=== PATIENT | female | born 1960 | race Caucasian/White ===

== ENCOUNTER 2020-02-15 11:37 | Day surgery (SDC) | payer MEDICARE ==
[2020-02-13 11:35] LABS: BASOPHILS % (AUTO) 0.4 % (0.0-5.0); EOSINOPHILS % (AUTO) 2.9 % (0.0-8.0); HEMATOCRIT 34.7 % (36-48); LYMPHOCYTES % (AUTO) 29.9 % (21.0-51.0); MEAN CORPUSCULAR HEMOGLOBIN 32.6 pg (27.0-33.0); MEAN CORPUSCULAR VOLUME 101.8 fL (79-99); MONOCYTES % (AUTO) 8.4 % (3.0-13.0); NEUTROPHILS % (AUTO) 58.1 % (40.0-77.0); PLATELET COUNT (AUTO) 282 K/uL (130-400); RED BLOOD CELL COUNT(AUTO) 3.41 MIL/uL (4.00-5.50); RED CELL DISTRIBUTION WIDTH 15.9 % (11.0-15.5); WHITE BLOOD COUNT (AUTO) 7.2 K/uL (4.8-10.8)
[2020-02-13 11:54] LABS: CREATININE 4.8 mg/dL (0.5-1.5); POTASSIUM 5.7 mmol/L (3.5-5.1)
[2020-02-13 12:05] LABS: INR 0.89 (0.85-1.15); PARTIAL THROMBOPLASTIN TIME 25.2 SEC (26.3-35.5); PROTHROMBIN TIME 9.7 SEC (9.6-11.6)
[2020-02-14 09:33] VITALS: BP 115/62
[~2020-02-15] VITALS: Ht 160 cm; Wt 73.7 kg
[~2020-02-15 11:37] MED LIST: ACYC200C PO; AEC81 PO; AMLO-258 PO; ATOR40TA69 PO; CARV6.25 PO; DOCU100C33 PO; DULO30CA52 PO; FERS325 PO; FOLI1TAB85 PO; FURO20TA4 PO; HYDR-3420 PO; INSU100I15 SQ; INSU100I21 SQ; PANT40TA54 PO; SODIUM CHLORIDE 0.9% 1000ML 1,000 ML IV SCH; TOPI50TA24 PO; VITAMIN D PO
[2020-02-15 12:05] VITALS: BP 106/46
--- NOTE | 2020-02-15 12:31 | NUR ---
skin dry with scabs skin tears to ble , pt states "had a fall 3 weeks ago. redness and swelling to ble. Addendum: 02/15/20 at 1233 by TRAVIS VELA RN Amended: Links added.
[2020-02-15] MEDS ORDERED: DiphenhydrAMINE HCL 50 MG/ML VIAL IV SCH (12:45)
--- NOTE | 2020-02-15 16:20 | NUR ---
procedure pt taken to cardiac catheterization technician for scheduled procedure.
[2020-02-15] MEDS ORDERED: LIDOCAINE HCL 2% 20ML ONE (16:47)
[2020-02-15] MEDS ORDERED: IODIXANOL 320 MG/ML 100 ML VIAL ONE (16:47)
[2020-02-15] MEDS ORDERED: MIDAZOLAM HCL 1 MG/ML 2ML VIAL ONE (16:47)
[2020-02-15] MEDS ORDERED: FENTANYL CITRATE PF 50 MCG/1 ML 2ML VIAL ONE (16:47)
[2020-02-15] MEDS ORDERED: HEPARIN SODIUM 1000UNIT/ML 10ML VIAL ONE (16:54)
[2020-02-15] MEDS ORDERED: DiphenhydrAMINE HCL 50 MG/ML VIAL ONE (16:58)
[2020-02-15] MEDS ORDERED: METHYLPREDNISOLONE SOD SUCC 125MG/2ML VIAL ONE (16:58)
[2020-02-15 18:05] VITALS: BP 135/44
--- NOTE | 2020-02-15 18:05 | NUR ---
post received patient back from director labor standards. s/p fistulogram with angioplasty right upper arm fistula. dressing dry and intact palpable bruit and thrill. vs stable. no bleeding or hematoma to site. pt awake and alert in bed. no distress noted. pt denied any pain or discomforts
[2020-02-15 18:20] VITALS: BP 136/44
[2020-02-15 18:35] VITALS: BP 140/52
[2020-02-15 18:50] VITALS: BP 136/51
[2020-02-15 19:00] VITALS: BP 138/56
--- NOTE | 2020-02-15 19:05 | NUR ---
dc pt dc home via w[facility] no distress noted. pt denied any pain or discomforts. right upper arm dressing dry and intact, no bleeding or hematoma to site. pt accompanied by family.
== END 2020-02-15 19:05 | disposition home or self-care (01) ==
LOC: DAH 11:37
PROVIDERS: ATTEND Surgery Vascular Surgery
DX: I77.89 Other specified disorders of arteries and arterioles (principal); I44.7 Left bundle-branch block, unspecified; I12.0 Hypertensive chronic kidney disease with stage 5 chronic kidney disease or end stage renal disease; E11.22 Type 2 diabetes mellitus with diabetic chronic kidney disease; N18.6 End stage renal disease; Z88.8 Allergy status to other drugs, medicaments and biological substances
CPT/HCPCS: 36415; 36902; 80048; 82948 ×2; 85025; 85610; 85730; 86850; 86900; 86901; 93005; A4215; A4216; A4221; A4222; A4223 ×3; A4606; A4663; C1725; C1769 ×4; C1894 ×2; J1200; J1644 ×2; J2250; J3010; J3490; J7030; Q9967; 99156; 99157; J2930

== ENCOUNTER → 2020-02-27 | Outpatient (CLI) | payer MEDICARE ==
[~2020-02-27] MED LIST changes: -SODIUM CHLORIDE 0.9% 1000ML 1,000 ML IV SCH
== END | disposition home or self-care (01) ==
LOC: RAH 08:54
PROVIDERS: ATTEND Surgery Vascular Surgery
DX: I77.89 Other specified disorders of arteries and arterioles (principal); N18.6 End stage renal disease; Z01.818 Encounter for other preprocedural examination
CPT/HCPCS: 93970

== ENCOUNTER → 2020-04-11 | Outpatient (CLI) | payer MEDICARE ==
[2020-03-28 11:52] LABS: BASOPHILS % (AUTO) 0.4 % (0.0-5.0); HEMATOCRIT 34.5 % (36-48); LYMPHOCYTES % (AUTO) 33.2 % (21.0-51.0); MEAN CORPUSCULAR HEMOGLOBIN 32.6 pg (27.0-33.0); MEAN CORPUSCULAR HGB CONC 31.9 g/dL (32.0-36.0); MEAN CORPUSCULAR VOLUME 102.4 fL (79-99); MONOCYTES % (AUTO) 10.4 % (3.0-13.0); NEUTROPHILS % (AUTO) 51.8 % (40.0-77.0); PLATELET COUNT (AUTO) 275 K/uL (130-400); RED BLOOD CELL COUNT(AUTO) 3.37 MIL/uL (4.00-5.50); WHITE BLOOD COUNT (AUTO) 5.7 K/uL (4.8-10.8)
[2020-03-28 12:02] LABS: CREATININE 4.7 mg/dL (0.5-1.5); POTASSIUM 4.7 mmol/L (3.5-5.1)
[2020-03-28 12:04] LABS: INR 1.01 (0.85-1.15); PROTHROMBIN TIME 10.8 SEC (9.6-11.6)
[2020-03-28 12:06] LABS: PARTIAL THROMBOPLASTIN TIME 25.7 SEC (26.3-35.5)
[2020-04-03 10:24] VITALS: BP 153/50
[~2020-04-11] VITALS: Ht 157.5 cm; Wt 76.2 kg
[~2020-04-11] MED LIST changes: +ACET-2247 PO; +BACL10TA PO; +DULO60CA64 PO; +INSU100I3 SQ; +INSU100V12 SQ; +MELA10TA2 PO; +NITR0.4T50 SL; +SUCR500T PO; +ZOFRAN PO
[2020-04-11 11:06] LABS: BASOPHILS % (AUTO) 0.5 % (0.0-5.0); EOSINOPHILS % (AUTO) 3.4 % (0.0-8.0); HEMATOCRIT 40.2 % (36-48); LYMPHOCYTES % (AUTO) 28.3 % (21.0-51.0); MEAN CORPUSCULAR HEMOGLOBIN 32.1 pg (27.0-33.0); MEAN CORPUSCULAR HGB CONC 31.8 g/dL (32.0-36.0); MEAN CORPUSCULAR VOLUME 100.8 fL (79-99); MONOCYTES % (AUTO) 8.4 % (3.0-13.0); NEUTROPHILS % (AUTO) 59.1 % (40.0-77.0); PLATELET COUNT (AUTO) 285 K/uL (130-400); RED BLOOD CELL COUNT(AUTO) 3.99 MIL/uL (4.00-5.50); RED CELL DISTRIBUTION WIDTH 14.4 % (11.0-15.5); WHITE BLOOD COUNT (AUTO) 7.4 K/uL (4.8-10.8)
[2020-04-11 11:07] LABS: CREATININE 5.1 mg/dL (0.5-1.5); POTASSIUM 4.5 mmol/L (3.5-5.1)
[2020-04-11 11:48] LABS: INR 0.95 (0.85-1.15); PROTHROMBIN TIME 10.4 SEC (9.6-11.6)
[2020-04-11 11:50] LABS: PARTIAL THROMBOPLASTIN TIME 25.1 SEC (26.3-35.5)
== END ==
LOC: EDSTATUS 10:00 → DAH 10:00
PROVIDERS: ATTEND Surgery Vascular Surgery
DX: Z01.818 Encounter for other preprocedural examination (principal); N18.6 End stage renal disease; Z20.828 Contact with and (suspected) exposure to other viral communicable diseases
CPT/HCPCS: 36415; 80048; 85025; 85610; 85730; 86850; 86900; 86901; C9803; U0003

== ENCOUNTER 2020-04-25 11:12 | Day surgery (SDC) | payer MEDICARE ==
[2020-04-23 09:25] LABS: CREATININE 5.9 mg/dL (0.5-1.5); POTASSIUM 4.4 mmol/L (3.5-5.1)
[2020-04-24 13:35] VITALS: BP 146/65
[~2020-04-25] VITALS: Ht 157.5 cm; Wt 74.0 kg
[~2020-04-25 11:12] MED LIST changes: -ACYC200C PO; -DOCU100C33 PO; -DULO30CA52 PO; -INSU100I15 SQ; -INSU100I21 SQ; -VITAMIN D PO
[2020-04-25 11:37] VITALS: BP 154/63
[2020-04-25] MEDS: SODIUM CHLORIDE 0.9% 1000ML 1,000 ML IV ONE (12:33)
[2020-04-25] MEDS ORDERED: HYDROCORTISONE SOD SUCCINATE 100 MG/2 ML VIAL ONE (13:39)
[2020-04-25] MEDS ORDERED: LIDOCAINE HCL 1% MDV 50ML VIAL ONE (14:06)
[2020-04-25] MEDS ORDERED: HEPARIN SODIUM 1000UNIT/ML 10ML VIAL ONE (14:06)
[2020-04-25] MEDS ORDERED: IODIXANOL 320 MG/ML 100 ML VIAL ONE (14:06)
[2020-04-25] MEDS: DiphenhydrAMINE HCL 50 MG/ML VIAL ONE (14:18)
[2020-04-25] MEDS: HYDROCORTISONE SOD SUCCINATE 100 MG/2 ML VIAL ONE (14:19)
[2020-04-25] MEDS ORDERED: MIDAZOLAM HCL 1 MG/ML 2ML VIAL ONE (14:40)
[2020-04-25] MEDS ORDERED: FENTANYL CITRATE PF 50 MCG/1 ML 2ML VIAL ONE (14:40)
[2020-04-25] MEDS ORDERED: OCTYL 2-CYANOACRYLATE 1 EACH TP ONE (15:51)
[2020-04-25 16:25] VITALS: BP 178/68
[2020-04-25 16:40] VITALS: BP 169/72
[2020-04-25 16:55] VITALS: BP 172/67
[2020-04-25 17:20] VITALS: BP 170/68
== END 2020-04-25 17:20 | disposition home or self-care (01) ==
LOC: DAH 11:12
PROVIDERS: ATTEND Surgery Vascular Surgery
DX: I12.0 Hypertensive chronic kidney disease with stage 5 chronic kidney disease or end stage renal disease (principal); E11.22 Type 2 diabetes mellitus with diabetic chronic kidney disease; N18.6 End stage renal disease; I77.89 Other specified disorders of arteries and arterioles; Z88.6 Allergy status to analgesic agent; Z88.8 Allergy status to other drugs, medicaments and biological substances; Z96.643 Presence of artificial hip joint, bilateral; Z90.49 Acquired absence of other specified parts of digestive tract; Z90.89 Acquired absence of other organs; Z98.890 Other specified postprocedural states; Z20.828 Contact with and (suspected) exposure to other viral communicable diseases; Z79.899 Other long term (current) drug therapy
CPT/HCPCS: 36415; 36581; 36902; 80048; 82948; 86850; 86900; 86901; 96374; 96375; A4215; A4221; A4222; A4223; A4649 ×2; A4663; C1725 ×3; C1750; C1769 ×5; C1894 ×2; C9803; J1200; J1644 ×4; J1720 ×2; J2250; J3010; J3490; J7030; Q9967; U0003; 99156; 99157

== ENCOUNTER 2020-09-24 06:52 | Day surgery (SDC) | payer MEDICARE ==
[2020-09-24] VITALS (7 sets, daily range): BP systolic 114–154; BP diastolic 47–68
[~2020-09-24] VITALS: Ht 157.5 cm; Wt 73.9 kg
[2020-09-24] MEDS: DEXTROSE 50%-WATER 50 ML DISP.SYRIN IV SCH ×2 (07:45→11:11)
[2020-09-24] MEDS ORDERED: FURO40TA5 PO (08:21)
[2020-09-24] MEDS ORDERED: INSU100I3 SQ (08:21)
[2020-09-24] MEDS ORDERED: PROPOFOL 10 MG/ML 20ML VIAL IV ONE ×2 (09:00)
[2020-09-24] MEDS ORDERED: ONDANSETRON 4MG INJ ONE (09:00)
[2020-09-24] MEDS ORDERED: METOCLOPRAMIDE 10 MG/2 ML VIAL ONE (10:51)
[2020-10-04] MEDS ORDERED: 0.9%NACL 1000ML 1,000 ML IV SCH (08:16)
== END 2020-09-24 11:20 | disposition home or self-care (01) ==
LOC: DAH 06:52 → ENDO 06:52
PROVIDERS: ATTEND Internal Medicine Gastroenterology
DX: K22.2 Esophageal obstruction (principal); Z20.822 Contact with and (suspected) exposure to COVID-19; K29.70 Gastritis, unspecified, without bleeding; E11.22 Type 2 diabetes mellitus with diabetic chronic kidney disease; I12.0 Hypertensive chronic kidney disease with stage 5 chronic kidney disease or end stage renal disease; N18.6 End stage renal disease; I25.10 Atherosclerotic heart disease of native coronary artery without angina pectoris; Z99.2 Dependence on renal dialysis; Z86.73 Personal history of transient ischemic attack (TIA), and cerebral infarction without residual deficits; Z95.5 Presence of coronary angioplasty implant and graft; Z90.89 Acquired absence of other organs; Z90.49 Acquired absence of other specified parts of digestive tract; Z80.0 Family history of malignant neoplasm of digestive organs; Z79.01 Long term (current) use of anticoagulants
CPT/HCPCS: 36415; 43239; 43249; 82948 ×4; 84132; 87635; A4215; A4221; A4222; A4223; A4606; A4620; A4663; C9803; J2405; J2704 ×2; J2765; J7070

== ENCOUNTER 2021-11-22 19:21 | Inpatient (IN) | payer MEDICARE ==
[~2021-11-22] VITALS: Ht 162.6 cm; Wt 66.1 kg
[~2021-11-22 19:21] MED LIST changes: -ACET-2247 PO; +ACYC200C24 PO; -AMLO-258 PO; -BACL10TA PO; +BISA5TAB12 PO; +CARAL PO; +CLOP75TA32 PO; +DEXA6TAB PO; +DOCU100C33 PO; -FERS325 PO; +FLUT1DIS4 IH; -FURO20TA4 PO; +FURO40TA5 PO; +GABA-529 PO; +HONE15GE TP; -HYDR-3420 PO; +HYDR-4060 PO; -INSU100I3 SQ; +ISOS10TA8 PO; +LACT100C2 PO; -MELA10TA2 PO; +SACU1TAB PO; -ZOFRAN PO; +[UNRECOGNIZED DRUG - CODE] PO
[2021-11-22] MEDS ORDERED: ONDANSETRON 4MG INJ ONE (19:44)
[2021-11-22 19:50] LABS: BASOPHILS % (AUTO) 0.2 % (0.0-5.0); HEMATOCRIT 42.2 % (36-48); MEAN CORPUSCULAR HEMOGLOBIN 30.8 pg (27.0-33.0); MEAN CORPUSCULAR HGB CONC 31.8 g/dL (32.0-36.0); MONOCYTES % (AUTO) 3.6 % (3.0-13.0); NEUTROPHILS % (AUTO) 92.8 % (40.0-77.0); PLATELET COUNT (AUTO) 169 K/uL (130-400); RED BLOOD CELL COUNT(AUTO) 4.35 MIL/uL (4.00-5.50); RED CELL DISTRIBUTION WIDTH 17.4 % (11.0-15.5); WHITE BLOOD COUNT (AUTO) 13.4 K/uL (4.8-10.8)
[2021-11-22] MEDS ORDERED: BUDESONIDE 0.5 MG/2 ML INH IH SCH (20:00)
[2021-11-22] MEDS ORDERED: ONDANSETRON 4MG INJ IVP ONE ×2 (20:00)
[2021-11-22] MEDS ORDERED: IPRATROPIUM/ALBUTEROL SULFATE 3 ML SOLUTION IH ONE ×2 (20:00)
[2021-11-22] MEDS ORDERED: ACETAMINOPHEN 500 MG TABLET PO ONE (20:00)
[2021-11-22] MEDS ORDERED: ALBUTEROL 0.083% 2.5 MG/3 ML INH IH ONE ×2 (20:00)
[2021-11-22] MEDS ORDERED: ACETAMINOPHEN 500 MG TABLET ONE (20:02)
[2021-11-22 20:16] LABS: CREATINE KINASE, TOTAL 110 U/L (21-232); LIPASE 98 U/L (114-286)
[2021-11-22 20:50] LABS: CREATININE 2.7 mg/dL (0.5-1.5); POTASSIUM 5.3 mmol/L (3.5-5.1)
[2021-11-22 20:54] LABS: ALBUMIN 3.1 g/dL (3.5-5.0); TOTAL PROTEIN, SERUM 7.4 g/dL (6.0-8.3)
[2021-11-22] MEDS ORDERED: NA ZIRCON CYCLOSIL(LOKELMA 10GM) PO ONE (21:00)
[2021-11-22] MEDS ORDERED: AZITHROMYCIN 250 MG TABLET PO ONE (21:30)
[2021-11-22] MEDS ORDERED: ACETAMINOPHEN 325 MG TAB PO PRN (21:30)
[2021-11-22] MEDS ORDERED: CEFTRIAXONE 1G VIAL IVP ONE (21:30)
[2021-11-22] MEDS ORDERED: ONDANSETRON 4MG INJ IVP PRN (21:30)
[2021-11-22] MEDS: ZOSYN 3.375GM +NS 50ML IV SCH (22:17)
[2021-11-22] MEDS ORDERED: ALPR0.5T8 PO (23:52)
[2021-11-23] MEDS ORDERED: AMLO-258 PO (00:09)
[2021-11-23] MEDS ORDERED: NOVOLOG FLEXPEN (00:09)
[2021-11-23] MEDS ORDERED: SACU1TAB PO (00:09)
[2021-11-23 01:00] VITALS: BP 153/51
[2021-11-23 04:31] VITALS: BP 121/60
[2021-11-23 06:17] LABS: BASOPHILS % (AUTO) 0.3 % (0.0-5.0); HEMATOCRIT 38.4 % (36-48); LYMPHOCYTES % (AUTO) 4.5 % (21.0-51.0); MEAN CORPUSCULAR HEMOGLOBIN 30.8 pg (27.0-33.0); MEAN CORPUSCULAR VOLUME 99.5 fL (79-99); MONOCYTES % (AUTO) 3.9 % (3.0-13.0); NEUTROPHILS % (AUTO) 90.9 % (40.0-77.0); PLATELET COUNT (AUTO) 151 K/uL (130-400); RED BLOOD CELL COUNT(AUTO) 3.86 MIL/uL (4.00-5.50); RED CELL DISTRIBUTION WIDTH 17.7 % (11.0-15.5); WHITE BLOOD COUNT (AUTO) 16.8 K/uL (4.8-10.8)
[2021-11-23] MEDS: INSULIN HUMULIN R 100 UNIT/ML 3ML SQ SCH ×4 (06:30→20:08)
[2021-11-23 06:40] LABS: HEMOGLOBIN A1C 6.4 % (4.0-6.0)
[2021-11-23 07:13] LABS: CREATININE 3.3 mg/dL (0.5-1.5); PHOSPHORUS 5.7 mg/dL (2.5-4.9); POTASSIUM 4.8 mmol/L (3.5-5.1)
[2021-11-23 09:26] VITALS: BP 98/50
[2021-11-23] MEDS: ZOSYN 3.375GM +NS 50ML IV SCH ×2 (09:36→20:08)
[2021-11-23 11:25] VITALS: BP 132/59
[2021-11-23 15:52] VITALS: BP 139/68
[2021-11-23] MEDS: MORPHINE 2 MG SYG IVP PRN ×2 (17:56→23:14)
[2021-11-23] MEDS: SACUBITRIL/VALSARTAN 1 EACH TABLET PO SCH (20:06)
[2021-11-23] MEDS: FUROSEMIDE 40 MG TABLET PO SCH (20:06)
[2021-11-23] MEDS: ISOSORBIDE MONONITRATE 20 MG TABLET PO SCH (20:07)
[2021-11-23] MEDS: ATORVASTATIN 40 MG TABLET PO SCH (20:07)
[2021-11-23] MEDS: DULOXETINE HCL 30 MG CAP PO SCH (20:07)
[2021-11-23] MEDS: TOPIRAMATE 100 MG TAB PO SCH (20:07)
[2021-11-23] MEDS: CARVEDILOL 6.25 MG TABLET PO SCH (20:07)
[2021-11-23] MEDS: ALPRAZOLAM 0.5 MG TABLET PO PRN (20:15)
[2021-11-23] MEDS ORDERED: Vitamin B Complex/Vit C/Folic Acid PO SCH (21:00)
[2021-11-23] MEDS: DIPHENHYDRAMINE HCL 25 MG CAPSULE PO PRN (21:44)
[2021-11-23] MEDS ORDERED: POLY17PO4 PO (23:03)
[2021-11-23] MEDS ORDERED: LACT10SO9 PO (23:03)
[2021-11-23] MEDS ORDERED: LACTULOSE 20 GM/30 ML UDCUP ONE (23:09)
[2021-11-23] MEDS ORDERED: LACTULOSE 20 GM/30 ML UDCUP PO PRN (23:30)
[2021-11-24 00:31] VITALS: BP 140/78
[2021-11-24 03:48] VITALS: BP 92/50
[2021-11-24 05:17] LABS: HEMATOCRIT 34.7 % (36-48); MEAN CORPUSCULAR HEMOGLOBIN 30.3 pg (27.0-33.0); MEAN CORPUSCULAR HGB CONC 30.8 g/dL (32.0-36.0); MEAN CORPUSCULAR VOLUME 98.3 fL (79-99); PLATELET COUNT (AUTO) 149 K/uL (130-400); RED BLOOD CELL COUNT(AUTO) 3.53 MIL/uL (4.00-5.50); RED CELL DISTRIBUTION WIDTH 17.3 % (11.0-15.5); WHITE BLOOD COUNT (AUTO) 8.8 K/uL (4.8-10.8)
[2021-11-24 05:32] LABS: BAND NEUTROPHILS % (MANUAL) 1 % (0-2); EOSINOPHILS % (MANUAL) 1 % (1-6); LYMPHOCYTES % (MANUAL) 12 % (22-44); MAN.DIFF COMMENT-IMPRESSION MANUAL DIFFERENTIAL; MONOCYTES % (MANUAL) 6 % (2-9); PLATELET MORPHOLOGY COMMENT ADEQUATE; SEGMENTED NEUTROPHILS % 80 % (40-70)
[2021-11-24 05:36] LABS: INR 1.16 (0.85-1.15); PROTHROMBIN TIME 12.5 SEC (9.6-11.6)
[2021-11-24 05:38] LABS: PARTIAL THROMBOPLASTIN TIME 31.4 SEC (26.3-35.5)
[2021-11-24 05:40] LABS: CREATININE 4.2 mg/dL (0.5-1.5); PHOSPHORUS 6.6 mg/dL (2.5-4.9); POTASSIUM 5.1 mmol/L (3.5-5.1)
[2021-11-24] MEDS: INSULIN HUMULIN R 100 UNIT/ML 3ML SQ SCH ×4 (06:40→20:32)
[2021-11-24 07:54] VITALS: BP 98/51
[2021-11-24] MEDS ORDERED: CLOPIDOGREL 75MG TAB PO SCH (09:00)
[2021-11-24] MEDS: CARVEDILOL 6.25 MG TABLET PO SCH ×2 (09:00→21:00)
[2021-11-24] MEDS: POLYETHYLENE GLYCOL 3350 17 GM POWD.PACK PO SCH (09:06)
[2021-11-24] MEDS: SACUBITRIL/VALSARTAN 1 EACH TABLET PO SCH ×2 (09:07→21:09)
[2021-11-24] MEDS: Vitamin B Complex/Vit C/Folic Acid PO SCH (09:07)
[2021-11-24] MEDS: PANTOPRAZOLE 40 MG TAB DR PO SCH (09:09)
[2021-11-24] MEDS: ASPIRIN 81 MG EC TAB PO SCH (09:09)
[2021-11-24] MEDS: TOPIRAMATE 100 MG TAB PO SCH ×2 (09:10→21:09)
[2021-11-24] MEDS: FUROSEMIDE 40 MG TABLET PO SCH ×2 (09:11→21:10)
[2021-11-24] MEDS: ACYCLOVIR 200 MG CAPSULE PO SCH (09:11)
[2021-11-24] MEDS: AMLODIPINE 5 MG TAB PO SCH (09:11)
[2021-11-24] MEDS: ZOSYN 3.375GM +NS 50ML IV SCH ×2 (09:31→21:10)
[2021-11-24] MEDS: ALPRAZOLAM 0.5 MG TABLET PO PRN ×2 (09:31→21:08)
[2021-11-24 11:42] VITALS: BP 97/50
[2021-11-24 16:04] VITALS: BP 92/50
[2021-11-24 20:55] VITALS: BP 93/41
[2021-11-24] MEDS: ATORVASTATIN 40 MG TABLET PO SCH (21:09)
[2021-11-24] MEDS: DULOXETINE HCL 30 MG CAP PO SCH (21:09)
[2021-11-24] MEDS: ISOSORBIDE MONONITRATE 20 MG TABLET PO SCH (21:09)
[2021-11-24] MEDS: MORPHINE 2 MG SYG IVP PRN (21:10)
[2021-11-24] MEDS: DIPHENHYDRAMINE HCL 25 MG CAPSULE PO PRN (21:17)
[2021-11-25] VITALS (20 sets, daily range): BP systolic 87–115; BP diastolic 42–73
[2021-11-25] MEDS ORDERED: RENAL DOSE IV PRN
[2021-11-25 05:30] LABS: HEMATOCRIT 36.7 % (36-48); MEAN CORPUSCULAR HEMOGLOBIN 30.2 pg (27.0-33.0); MEAN CORPUSCULAR VOLUME 100.8 fL (79-99); PLATELET COUNT (AUTO) 177 K/uL (130-400); RED BLOOD CELL COUNT(AUTO) 3.64 MIL/uL (4.00-5.50); RED CELL DISTRIBUTION WIDTH 16.7 % (11.0-15.5); WHITE BLOOD COUNT (AUTO) 7.2 K/uL (4.8-10.8)
[2021-11-25] MEDS: INSULIN HUMULIN R 100 UNIT/ML 3ML SQ SCH ×4 (05:50→20:50)
[2021-11-25 05:51] LABS: BAND NEUTROPHILS % (MANUAL) 3 % (0-2); BASOPHILS % (MANUAL) 2 % (0-2); EOSINOPHILS % (MANUAL) 1 % (1-6); LYMPHOCYTES % (MANUAL) 13 % (22-44); MAN.DIFF COMMENT-IMPRESSION MANUAL DIFFERENTIAL; MONOCYTES % (MANUAL) 6 % (2-9); SEGMENTED NEUTROPHILS % 75 % (40-70)
[2021-11-25 06:01] LABS: CREATININE 5.2 mg/dL (0.5-1.5); THYROID STIMULATING HORMONE 2.12 uIU/mL (0.36-3.74)
[2021-11-25 06:06] LABS: POTASSIUM 6.1 mmol/L (3.5-5.1)
[2021-11-25] MEDS ORDERED: KAYEXALATE 15GM/60ML PO PRN (08:30)
[2021-11-25] MEDS: PANTOPRAZOLE 40 MG TAB DR PO SCH (08:53)
[2021-11-25] MEDS: HONEY 1 APPL/ML TUBE TP SCH (08:53)
[2021-11-25] MEDS: ZOSYN 3.375GM +NS 50ML IV SCH ×2 (08:53→20:52)
[2021-11-25] MEDS: Vitamin B Complex/Vit C/Folic Acid PO SCH (08:54)
[2021-11-25] MEDS: ASPIRIN 81 MG EC TAB PO SCH (08:54)
[2021-11-25] MEDS: POLYETHYLENE GLYCOL 3350 17 GM POWD.PACK PO SCH (08:54)
[2021-11-25] MEDS: ACYCLOVIR 200 MG CAPSULE PO SCH (08:55)
[2021-11-25] MEDS: TOPIRAMATE 100 MG TAB PO SCH ×2 (08:56→20:53)
[2021-11-25] MEDS: CARVEDILOL 6.25 MG TABLET PO SCH ×2 (09:00→20:55)
[2021-11-25] MEDS: FUROSEMIDE 40 MG TABLET PO SCH ×2 (09:00→20:54)
[2021-11-25] MEDS: AMLODIPINE 5 MG TAB PO SCH (09:00)
[2021-11-25] MEDS: SACUBITRIL/VALSARTAN 1 EACH TABLET PO SCH ×2 (09:00→20:53)
[2021-11-25] MEDS: MORPHINE 2 MG SYG IVP PRN ×2 (09:18→21:00)
[2021-11-25] MEDS ORDERED: BENZOCAINE/MENTH/CETYLPYRD CL 1 EACH LOZENGE MM PRN (10:30)
[2021-11-25] MEDS: HEPARIN 5,000 UNIT VIAL IV SCH ×3 (11:11→14:11)
[2021-11-25 14:44] LABS: TOTAL PROTEIN, SERUM 7.1 g/dL (6.0-8.3)
[2021-11-25] MEDS: ALPRAZOLAM 0.5 MG TABLET PO PRN (20:52)
[2021-11-25] MEDS: ATORVASTATIN 40 MG TABLET PO SCH (20:53)
[2021-11-25] MEDS: ISOSORBIDE MONONITRATE 20 MG TABLET PO SCH (20:53)
[2021-11-25] MEDS: DULOXETINE HCL 30 MG CAP PO SCH (20:54)
[2021-11-25] MEDS: DIPHENHYDRAMINE HCL 25 MG CAPSULE PO PRN (21:10)
[2021-11-25 22:42] LABS: HEPATITIS B SURFACE ANTIGEN Non-Reactive (Nonreactive)
[2021-11-26] VITALS (16 sets, daily range): BP systolic 80–108; BP diastolic 36–62
[2021-11-26 05:11] LABS: BASOPHILS % (AUTO) 0.2 % (0.0-5.0); HEMATOCRIT 39.4 % (36-48); LYMPHOCYTES % (AUTO) 15.2 % (21.0-51.0); MEAN CORPUSCULAR HEMOGLOBIN 30.6 pg (27.0-33.0); MEAN CORPUSCULAR HGB CONC 30.5 g/dL (32.0-36.0); MEAN CORPUSCULAR VOLUME 100.5 fL (79-99); MONOCYTES % (AUTO) 8.8 % (3.0-13.0); NEUTROPHILS % (AUTO) 74.5 % (40.0-77.0); PLATELET COUNT (AUTO) 159 K/uL (130-400); RED BLOOD CELL COUNT(AUTO) 3.92 MIL/uL (4.00-5.50); RED CELL DISTRIBUTION WIDTH 16.6 % (11.0-15.5); WHITE BLOOD COUNT (AUTO) 5.8 K/uL (4.8-10.8)
[2021-11-26 05:21] LABS: CREATININE 4.2 mg/dL (0.5-1.5)
[2021-11-26 05:23] LABS: POTASSIUM 6.2 mmol/L (3.5-5.1)
[2021-11-26] MEDS: INSULIN HUMULIN R 100 UNIT/ML 3ML SQ SCH ×4 (05:49→20:01)
[2021-11-26] MEDS: ALPRAZOLAM 0.5 MG TABLET PO PRN (08:40)
[2021-11-26] MEDS: Vitamin B Complex/Vit C/Folic Acid PO SCH (08:40)
[2021-11-26] MEDS: TOPIRAMATE 100 MG TAB PO SCH ×2 (08:40→21:32)
[2021-11-26] MEDS: PANTOPRAZOLE 40 MG TAB DR PO SCH (08:40)
[2021-11-26] MEDS: ZOSYN 3.375GM +NS 50ML IV SCH ×2 (08:41→21:30)
[2021-11-26] MEDS: ACYCLOVIR 200 MG CAPSULE PO SCH (08:41)
[2021-11-26] MEDS: POLYETHYLENE GLYCOL 3350 17 GM POWD.PACK PO SCH (08:41)
[2021-11-26] MEDS: HONEY 1 APPL/ML TUBE TP SCH (08:43)
[2021-11-26] MEDS: AMLODIPINE 5 MG TAB PO SCH (09:00)
[2021-11-26] MEDS: FUROSEMIDE 40 MG TABLET PO SCH ×2 (09:00→21:33)
[2021-11-26] MEDS: ASPIRIN 81 MG EC TAB PO SCH (09:00)
[2021-11-26] MEDS ORDERED: NA ZIRCON CYCLOSIL(LOKELMA 10GM) PO ONE (11:30)
[2021-11-26] MEDS: CARVEDILOL 6.25 MG TABLET PO SCH ×2 (13:31→21:32)
[2021-11-26] MEDS: SACUBITRIL/VALSARTAN 1 EACH TABLET PO SCH ×2 (13:31→21:31)
[2021-11-26 14:09] LABS: APPEARANCE BODY FLUID CLEAR (CLEAR); BODY FLUID RBC 153 /cu. mm.; BODY FLUID WBC 52 /cu. mm.; COLOR,BODY FLUID YELLOW (LT YELLOW); SPECIMENTYPE,BODY FLUID PLEURAL; TOTAL VOLUME,BODY FLUID 1000 mL
[2021-11-26] MEDS: HEPARIN 5,000 UNIT VIAL IV SCH (15:00)
[2021-11-26 15:25] LABS: BF EOSINOPHIL 1 %; BF LYMPHOCYTE 36 %; BF MONOCYTE 4 %
[2021-11-26] MEDS: ISOSORBIDE MONONITRATE 20 MG TABLET PO SCH (21:00)
[2021-11-26] MEDS: ATORVASTATIN 40 MG TABLET PO SCH (21:32)
[2021-11-26] MEDS: DULOXETINE HCL 30 MG CAP PO SCH (21:32)
[2021-11-27] VITALS (21 sets, daily range): BP systolic 98–120; BP diastolic 46–55
[2021-11-27 05:18] LABS: BASOPHILS % (AUTO) 0.3 % (0.0-5.0); EOSINOPHILS % (AUTO) 0.7 % (0.0-8.0); HEMATOCRIT 37.3 % (36-48); LYMPHOCYTES % (AUTO) 12.2 % (21.0-51.0); MEAN CORPUSCULAR HEMOGLOBIN 30.3 pg (27.0-33.0); MEAN CORPUSCULAR HGB CONC 30.8 g/dL (32.0-36.0); MEAN CORPUSCULAR VOLUME 98.2 fL (79-99); MONOCYTES % (AUTO) 8.6 % (3.0-13.0); NEUTROPHILS % (AUTO) 77.5 % (40.0-77.0); PLATELET COUNT (AUTO) 159 K/uL (130-400); RED CELL DISTRIBUTION WIDTH 16.1 % (11.0-15.5); WHITE BLOOD COUNT (AUTO) 6.1 K/uL (4.8-10.8)
[2021-11-27 05:42] LABS: CREATININE 5.4 mg/dL (0.5-1.5); PHOSPHORUS 8.2 mg/dL (2.5-4.9); POTASSIUM 5.1 mmol/L (3.5-5.1)
[2021-11-27] MEDS: INSULIN HUMULIN R 100 UNIT/ML 3ML SQ SCH ×4 (07:30→21:00)
[2021-11-27] MEDS: AMLODIPINE 5 MG TAB PO SCH (09:00)
[2021-11-27] MEDS: FUROSEMIDE 40 MG TABLET PO SCH (09:00)
[2021-11-27] MEDS: SACUBITRIL/VALSARTAN 1 EACH TABLET PO SCH ×2 (09:00→21:38)
[2021-11-27] MEDS: POLYETHYLENE GLYCOL 3350 17 GM POWD.PACK PO SCH (09:00)
[2021-11-27] MEDS: CARVEDILOL 6.25 MG TABLET PO SCH ×2 (09:00→21:38)
[2021-11-27] MEDS: Vitamin B Complex/Vit C/Folic Acid PO SCH (09:09)
[2021-11-27] MEDS: ASPIRIN 81 MG EC TAB PO SCH (09:10)
[2021-11-27] MEDS: TOPIRAMATE 100 MG TAB PO SCH ×2 (09:11→21:38)
[2021-11-27] MEDS: PANTOPRAZOLE 40 MG TAB DR PO SCH (09:11)
[2021-11-27] MEDS: ACYCLOVIR 200 MG CAPSULE PO SCH (09:15)
[2021-11-27] MEDS: ZOSYN 3.375GM +NS 50ML IV SCH ×2 (09:30→21:39)
[2021-11-27] MEDS: HEPARIN 5,000 UNIT VIAL IV SCH (13:20)
[2021-11-27] MEDS: GABAPENTIN 100 MG CAPSULE PO SCH ×2 (15:04→21:39)
[2021-11-27] MEDS: HONEY 1 APPL/ML TUBE TP SCH (15:05)
[2021-11-27] MEDS: ATORVASTATIN 40 MG TABLET PO SCH (21:38)
[2021-11-27] MEDS: DULOXETINE HCL 30 MG CAP PO SCH (21:38)
[2021-11-27] MEDS: ISOSORBIDE MONONITRATE 20 MG TABLET PO SCH (21:39)
[2021-11-28 00:07] VITALS: BP 94/38
[2021-11-28 03:31] VITALS: BP 91/43
[2021-11-28] MEDS: INSULIN HUMULIN R 100 UNIT/ML 3ML SQ SCH ×4 (05:49→21:00)
[2021-11-28 08:00] VITALS: BP 87/47
[2021-11-28] MEDS: AMLODIPINE 5 MG TAB PO SCH (09:00)
[2021-11-28] MEDS: CARVEDILOL 6.25 MG TABLET PO SCH ×2 (09:00→21:05)
[2021-11-28] MEDS: ACYCLOVIR 200 MG CAPSULE PO SCH (10:33)
[2021-11-28] MEDS: ASPIRIN 81 MG EC TAB PO SCH (10:34)
[2021-11-28] MEDS: PANTOPRAZOLE 40 MG TAB DR PO SCH (10:36)
[2021-11-28] MEDS: POLYETHYLENE GLYCOL 3350 17 GM POWD.PACK PO SCH (10:37)
[2021-11-28] MEDS: TOPIRAMATE 100 MG TAB PO SCH ×2 (10:37→21:09)
[2021-11-28] MEDS: SACUBITRIL/VALSARTAN 1 EACH TABLET PO SCH ×2 (10:37→21:08)
[2021-11-28] MEDS: Vitamin B Complex/Vit C/Folic Acid PO SCH (10:37)
[2021-11-28] MEDS: ZOSYN 3.375GM +NS 50ML IV SCH ×2 (10:38→21:09)
[2021-11-28] MEDS: ALPRAZOLAM 0.5 MG TABLET PO PRN (10:39)
[2021-11-28] MEDS: HONEY 1 APPL/ML TUBE TP SCH (10:46)
[2021-11-28] MEDS: GABAPENTIN 100 MG CAPSULE PO SCH ×3 (10:46→21:04)
[2021-11-28 11:22] VITALS: BP 100/45
[2021-11-28] MEDS: HEPARIN 5,000 UNIT VIAL IV SCH (15:00)
[2021-11-28 15:38] VITALS: BP 102/33
[2021-11-28 20:00] VITALS: BP 102/46
[2021-11-28] MEDS: ATORVASTATIN 40 MG TABLET PO SCH (21:05)
[2021-11-28] MEDS: ISOSORBIDE MONONITRATE 20 MG TABLET PO SCH (21:05)
[2021-11-28] MEDS: DULOXETINE HCL 30 MG CAP PO SCH (21:06)
[2021-11-29] VITALS (20 sets, daily range): BP systolic 80–104; BP diastolic 31–61
[2021-11-29 05:46] LABS: HEMATOCRIT 34.3 % (36-48); MEAN CORPUSCULAR HEMOGLOBIN 30.7 pg (27.0-33.0); MEAN CORPUSCULAR HGB CONC 31.5 g/dL (32.0-36.0); MEAN CORPUSCULAR VOLUME 97.4 fL (79-99); RED BLOOD CELL COUNT(AUTO) 3.52 MIL/uL (4.00-5.50); RED CELL DISTRIBUTION WIDTH 15.7 % (11.0-15.5); WHITE BLOOD COUNT (AUTO) 5.9 K/uL (4.8-10.8)
[2021-11-29 06:01] LABS: ALBUMIN 2.2 g/dL (3.5-5.0); CREATININE 5.8 mg/dL (0.5-1.5); PHOSPHORUS 8.2 mg/dL (2.5-4.9); POTASSIUM 4.2 mmol/L (3.5-5.1); TOTAL PROTEIN, SERUM 6.2 g/dL (6.0-8.3)
[2021-11-29] MEDS: INSULIN HUMULIN R 100 UNIT/ML 3ML SQ SCH ×3 (06:38→16:30)
[2021-11-29] MEDS: POLYETHYLENE GLYCOL 3350 17 GM POWD.PACK PO SCH (09:00)
[2021-11-29] MEDS: CARVEDILOL 6.25 MG TABLET PO SCH (09:00)
[2021-11-29] MEDS: AMLODIPINE 5 MG TAB PO SCH (09:00)
[2021-11-29] MEDS: ZOSYN 3.375GM +NS 50ML IV SCH (10:21)
[2021-11-29] MEDS: ASPIRIN 81 MG EC TAB PO SCH (10:21)
[2021-11-29] MEDS: SACUBITRIL/VALSARTAN 1 EACH TABLET PO SCH (10:22)
[2021-11-29] MEDS: Vitamin B Complex/Vit C/Folic Acid PO SCH (10:22)
[2021-11-29] MEDS: GABAPENTIN 100 MG CAPSULE PO SCH ×2 (10:23→14:00)
[2021-11-29] MEDS: PANTOPRAZOLE 40 MG TAB DR PO SCH (10:23)
[2021-11-29] MEDS: TOPIRAMATE 100 MG TAB PO SCH (10:24)
[2021-11-29] MEDS: ACYCLOVIR 200 MG CAPSULE PO SCH (10:24)
[2021-11-29] MEDS: HONEY 1 APPL/ML TUBE TP SCH (10:25)
[2021-11-29] MEDS: HEPARIN 5,000 UNIT VIAL IV SCH (15:00)
== END 2021-11-29 19:30 | disposition home or self-care (01) | DRG 193 ==
LOC: EDH 19:21 → EDHIP 21:10 → 3DH 11-23 00:24
PROVIDERS: ADMIT Internal Medicine Infectious Disease; ATTEND Internal Medicine Infectious Disease
PROC: 5A09357 Assistance with Respiratory Ventilation, Less than 24 Consecutive Hours, Continuous Positive Airway Pressure (ICD-10-PCS; 2021-11-22)
PROC: 5A09357 Assistance with Respiratory Ventilation, Less than 24 Consecutive Hours, Continuous Positive Airway Pressure (ICD-10-PCS; 2021-11-23)
PROC: 5A1D70Z Performance of Urinary Filtration, Intermittent, Less than 6 Hours Per Day (ICD-10-PCS; 2021-11-25)
PROC: 0W9B3ZZ Drainage of Left Pleural Cavity, Percutaneous Approach (ICD-10-PCS; principal; 2021-11-26)
PROC: 5A1D70Z Performance of Urinary Filtration, Intermittent, Less than 6 Hours Per Day (ICD-10-PCS; 2021-11-27)
PROC: 5A1D70Z Performance of Urinary Filtration, Intermittent, Less than 6 Hours Per Day (ICD-10-PCS; 2021-11-29)
DX: J18.9 Pneumonia, unspecified organism (principal); J96.21 Acute and chronic respiratory failure with hypoxia; N18.6 End stage renal disease; I12.0 Hypertensive chronic kidney disease with stage 5 chronic kidney disease or end stage renal disease; J44.0 Chronic obstructive pulmonary disease with (acute) lower respiratory infection; L03.115 Cellulitis of right lower limb; J91.8 Pleural effusion in other conditions classified elsewhere; Z20.822 Contact with and (suspected) exposure to COVID-19; E87.5 Hyperkalemia; E87.70 Fluid overload, unspecified; D64.9 Anemia, unspecified; E11.22 Type 2 diabetes mellitus with diabetic chronic kidney disease; E11.51 Type 2 diabetes mellitus with diabetic peripheral angiopathy without gangrene; E66.9 Obesity, unspecified; E78.5 Hyperlipidemia, unspecified; F14.90 Cocaine use, unspecified, uncomplicated; G40.909 Epilepsy, unspecified, not intractable, without status epilepticus; M19.90 Unspecified osteoarthritis, unspecified site; I25.10 Atherosclerotic heart disease of native coronary artery without angina pectoris; I25.2 Old myocardial infarction; Z83.3 Family history of diabetes mellitus; Z86.73 Personal history of transient ischemic attack (TIA), and cerebral infarction without residual deficits; Z91.010 Allergy to peanuts; Z95.0 Presence of cardiac pacemaker; Z95.1 Presence of aortocoronary bypass graft; Z99.2 Dependence on renal dialysis; Z99.81 Dependence on supplemental oxygen
CPT/HCPCS: 32555; 36415; 71045; 71250; 80048; 80053; 82550; 82945; 82948; 83036; 83615; 83690; 83735; 83986; 84100; 84132; 84145; 84155; 84157; 84443; 84484; 85025; 85027; 85610; 85730; 86704; 86706; 87071; 87116; 87205; 87206; 87340; 87635; 87804; 89051; 90935; 93005; 93306; 93356; 94640; 94660; 94664; 97039; C1729; C9803; G0378; J0696; J1644; J1815; J2405; J2543; Q0163

== ENCOUNTER 2021-12-11 13:11 | Emergency (ER) | payer MEDICARE ==
[~2021-12-11 13:11] MED LIST changes: +ALPR0.5T8 PO; +AMLO-258 PO; -BISA5TAB12 PO; -CARAL PO; -DEXA6TAB PO; -DOCU100C33 PO; -FLUT1DIS4 IH; -GABA-529 PO; -HONE15GE TP; -HYDR-4060 PO; -INSU100V12 SQ; -LACT100C2 PO; +LACT10SO9 PO; -NITR0.4T50 SL; +NOVOLOG FLEXPEN; +POLY17PO4 PO; -SUCR500T PO; -[UNRECOGNIZED DRUG - CODE] PO
[2021-12-11 13:53] LABS: BASOPHILS % (AUTO) 0.2 % (0.0-5.0); EOSINOPHILS % (AUTO) 1.6 % (0.0-8.0); HEMATOCRIT 36.2 % (36-48); LYMPHOCYTES % (AUTO) 13.8 % (21.0-51.0); MEAN CORPUSCULAR HEMOGLOBIN 30.4 pg (27.0-33.0); MEAN CORPUSCULAR HGB CONC 32.3 g/dL (32.0-36.0); MONOCYTES % (AUTO) 7.9 % (3.0-13.0); NEUTROPHILS % (AUTO) 76.1 % (40.0-77.0); PLATELET COUNT (AUTO) 221 K/uL (130-400); RED BLOOD CELL COUNT(AUTO) 3.85 MIL/uL (4.00-5.50); RED CELL DISTRIBUTION WIDTH 16.7 % (11.0-15.5); WHITE BLOOD COUNT (AUTO) 5.6 K/uL (4.8-10.8)
[2021-12-11 14:02] LABS: POTASSIUM 3.8 mmol/L (3.5-5.1)
[2021-12-11 14:09] LABS: ALBUMIN 3.3 g/dL (3.5-5.0); TOTAL PROTEIN, SERUM 8.2 g/dL (6.0-8.3)
[2021-12-11 17:33] LABS: AMPHET/METH SCREEN,URINE NEGATIVE (NEGATIVE); BARBITURATE SCREEN, URINE NEGATIVE (NEGATIVE); BENZODIAZEPINES SCREEN,URINE NEGATIVE (NEGATIVE); CANNABINOID SCREEN,URINE NEGATIVE (NEGATIVE); COCAINE SCREEN,URINE POSITIVE (NEGATIVE); PHENCYCLIDINE SCREEN,URINE NEGATIVE (NEGATIVE)
[2021-12-11 18:54] VITALS: BP 140/75
== END 2021-12-11 18:54 | disposition home or self-care (01) ==
LOC: EDH 13:11
DX: I12.0 Hypertensive chronic kidney disease with stage 5 chronic kidney disease or end stage renal disease (principal); E11.22 Type 2 diabetes mellitus with diabetic chronic kidney disease; N18.6 End stage renal disease; J98.11 Atelectasis; R07.1 Chest pain on breathing; F14.10 Cocaine abuse, uncomplicated; Z99.2 Dependence on renal dialysis; Z79.82 Long term (current) use of aspirin; Z88.5 Allergy status to narcotic agent; Z88.6 Allergy status to analgesic agent; Z88.8 Allergy status to other drugs, medicaments and biological substances; Z95.810 Presence of automatic (implantable) cardiac defibrillator
CPT/HCPCS: 36415; 71045; 71250; 80053; 80305; 84484; 85025; 93005

== ENCOUNTER 2021-12-20 14:50 | Inpatient (IN) | payer MEDICARE ==
[~2021-12-20] VITALS: Ht 157.5 cm; Wt 63.1 kg
[2021-12-20 15:37] LABS: BASOPHILS % (AUTO) 0.2 % (0.0-5.0); EOSINOPHILS % (AUTO) 0.2 % (0.0-8.0); HEMATOCRIT 42.1 % (36-48); LYMPHOCYTES % (AUTO) 8.2 % (21.0-51.0); MEAN CORPUSCULAR HEMOGLOBIN 30.9 pg (27.0-33.0); MEAN CORPUSCULAR HGB CONC 31.6 g/dL (32.0-36.0); MEAN CORPUSCULAR VOLUME 97.7 fL (79-99); PLATELET COUNT (AUTO) 175 K/uL (130-400); RED BLOOD CELL COUNT(AUTO) 4.31 MIL/uL (4.00-5.50); RED CELL DISTRIBUTION WIDTH 16.9 % (11.0-15.5); WHITE BLOOD COUNT (AUTO) 5.1 K/uL (4.8-10.8)
[2021-12-20] MEDS ORDERED: DEXTROSE 50%-WATER 50 ML DISP.SYRIN IV ONE (16:08)
[2021-12-20 16:46] LABS: ALBUMIN 2.8 g/dL (3.5-5.0); CREATININE 4.4 mg/dL (0.5-1.5); POTASSIUM 5.3 mmol/L (3.5-5.1)
[2021-12-20 19:50] LABS: APPEARANCE,URINE CLOUDY (CLEAR); BILIRUBIN,URINE NEGATIVE (NEGATIVE); COLOR,URINE LIGHT-YELLOW (YELLOW); GLUCOSE, URINE (UA) TRACE mg/dL (NEGATIVE); KETONES,URINE NEGATIVE (NEGATIVE); LEUKOCYTE ESTERASE ,URINE 250 Leu/uL (NEGATIVE); NITRATE,URINE NEGATIVE (NEGATIVE); OCCULT BLOOD,URINE SMALL (NEGATIVE); PROTEIN,URINE 600 mg/dL (NEGATIVE); UROBILINOGEN,URINE 0.2 mg/dL (0.2-1.0)
[2021-12-20 20:00] LABS: BACTERIA,URINE RARE /HPF (None Seen); MUCUS,URINE RARE LPF (None Seen); SQUAMOUS EPITHELIAL CELL,UR MANY /HPF (0-2); WBC,URINE 26-50 /HPF (0-1)
[2021-12-20] MEDS ORDERED: ONDANSETRON 4MG INJ IVP PRN (21:00)
[2021-12-20] MEDS ORDERED: GLUCAGON 1MG KIT 1 MG ML IM PRN (21:00)
[2021-12-20] MEDS ORDERED: ACETAMINOPHEN 325 MG TAB PO PRN (21:00)
[2021-12-20] MEDS ORDERED: DEXTROSE 50%-WATER 50 ML DISP.SYRIN IV PRN (21:00)
[2021-12-20] MEDS: SODIUM CL 4MEQ/ML 30ML 154 MEQ in DEXTROSE 10%-WATER 961.5 ML IV SCH (21:57)
[2021-12-21] VITALS (22 sets, daily range): BP systolic 130–177; BP diastolic 55–95
[2021-12-21 05:35] LABS: BASOPHILS % (AUTO) 0.2 % (0.0-5.0); HEMATOCRIT 34.8 % (36-48); LYMPHOCYTES % (AUTO) 18.3 % (21.0-51.0); MEAN CORPUSCULAR HEMOGLOBIN 30.4 pg (27.0-33.0); MEAN CORPUSCULAR HGB CONC 31.6 g/dL (32.0-36.0); MEAN CORPUSCULAR VOLUME 96.1 fL (79-99); MONOCYTES % (AUTO) 9.6 % (3.0-13.0); NEUTROPHILS % (AUTO) 70.9 % (40.0-77.0); PLATELET COUNT (AUTO) 191 K/uL (130-400); RED BLOOD CELL COUNT(AUTO) 3.62 MIL/uL (4.00-5.50); RED CELL DISTRIBUTION WIDTH 16.8 % (11.0-15.5); WHITE BLOOD COUNT (AUTO) 5.1 K/uL (4.8-10.8)
[2021-12-21 05:47] LABS: CREATININE 5.1 mg/dL (0.5-1.5); MAGNESIUM 2.1 mg/dL (1.80-2.40); POTASSIUM 5.9 mmol/L (3.5-5.1)
[2021-12-21] MEDS: HEPARIN 5,000 UNIT VIAL IV SCH (17:37)
[2021-12-21 20:52] LABS: AMPHET/METH SCREEN,URINE NEGATIVE (NEGATIVE); BARBITURATE SCREEN, URINE NEGATIVE (NEGATIVE); BENZODIAZEPINES SCREEN,URINE NEGATIVE (NEGATIVE); CANNABINOID SCREEN,URINE NEGATIVE (NEGATIVE); COCAINE SCREEN,URINE POSITIVE (NEGATIVE); OPIATE SCREEN,URINE NEGATIVE (NEGATIVE); PHENCYCLIDINE SCREEN,URINE NEGATIVE (NEGATIVE)
[2021-12-21] MEDS: SODIUM CL 4MEQ/ML 30ML 154 MEQ in DEXTROSE 10%-WATER 961.5 ML IV SCH (22:33)
[2021-12-22 03:45] VITALS: BP 139/57
[2021-12-22 08:30] VITALS: BP 139/66
[2021-12-22] MEDS ORDERED: LACTULOSE 20 GM/30 ML UDCUP PO PRN (10:00)
[2021-12-22 11:03] LABS: HEPATITIS B SURFACE ANTIGEN Non-Reactive (Nonreactive)
[2021-12-22 11:10] VITALS: BP 144/70
[2021-12-22 15:10] VITALS: BP 156/77
[2021-12-22] MEDS ORDERED: BACITRACIN 1 EACH PACKET TP ONE (19:30)
[2021-12-22 20:03] VITALS: BP 138/67
[2021-12-22] MEDS: SACUBITRIL/VALSARTAN 1 EACH TABLET PO SCH (21:10)
[2021-12-22] MEDS: Vitamin B Complex/Vit C/Folic Acid PO SCH (21:10)
[2021-12-22] MEDS: ATORVASTATIN 40 MG TABLET PO SCH (21:11)
[2021-12-22] MEDS: DULOXETINE HCL 30 MG CAP PO SCH (21:11)
[2021-12-22] MEDS: TOPIRAMATE 100 MG TAB PO SCH (21:11)
[2021-12-22] MEDS: ISOSORBIDE MONONITRATE 20 MG TABLET PO SCH (21:11)
[2021-12-22] MEDS: CARVEDILOL 6.25 MG TABLET PO SCH (21:12)
[2021-12-22] MEDS: FUROSEMIDE 40 MG TABLET PO SCH (21:12)
[2021-12-22] MEDS: ALPRAZOLAM 0.5 MG TABLET PO PRN (21:21)
[2021-12-23] VITALS (21 sets, daily range): BP systolic 86–136; BP diastolic 41–69
[2021-12-23 05:19] LABS: HEMATOCRIT 35.1 % (36-48); MEAN CORPUSCULAR HEMOGLOBIN 30.3 pg (27.0-33.0); MEAN CORPUSCULAR HGB CONC 30.2 g/dL (32.0-36.0); MEAN CORPUSCULAR VOLUME 100.3 fL (79-99); PLATELET COUNT (AUTO) 185 K/uL (130-400); RED CELL DISTRIBUTION WIDTH 16.5 % (11.0-15.5); WHITE BLOOD COUNT (AUTO) 4.5 K/uL (4.8-10.8)
[2021-12-23 05:36] LABS: ALBUMIN 2.7 g/dL (3.5-5.0); CREATININE 5.1 mg/dL (0.5-1.5); PHOSPHORUS 8.4 mg/dL (2.5-4.9); POTASSIUM 5.4 mmol/L (3.5-5.1); TOTAL PROTEIN, SERUM 6.9 g/dL (6.0-8.3)
[2021-12-23] MEDS: POLYETHYLENE GLYCOL 3350 17 GM POWD.PACK PO SCH (09:14)
[2021-12-23] MEDS: PANTOPRAZOLE 40 MG TAB DR PO SCH (09:15)
[2021-12-23] MEDS: CARVEDILOL 6.25 MG TABLET PO SCH ×2 (09:15→20:34)
[2021-12-23] MEDS: ACYCLOVIR 200 MG CAPSULE PO SCH (09:16)
[2021-12-23] MEDS: SACUBITRIL/VALSARTAN 1 EACH TABLET PO SCH ×2 (09:16→20:34)
[2021-12-23] MEDS: FUROSEMIDE 40 MG TABLET PO SCH ×2 (09:16→20:34)
[2021-12-23] MEDS: CLOPIDOGREL 75MG TAB PO SCH (09:16)
[2021-12-23] MEDS: AMLODIPINE 5 MG TAB PO SCH (09:16)
[2021-12-23] MEDS: ASPIRIN 81 MG EC TAB PO SCH (09:16)
[2021-12-23] MEDS: TOPIRAMATE 100 MG TAB PO SCH ×2 (09:17→20:35)
[2021-12-23] MEDS: HEPARIN 5,000 UNIT VIAL IV SCH (13:21)
[2021-12-23] MEDS: ISOSORBIDE MONONITRATE 20 MG TABLET PO SCH (20:34)
[2021-12-23] MEDS: ATORVASTATIN 40 MG TABLET PO SCH (20:35)
[2021-12-23] MEDS: Vitamin B Complex/Vit C/Folic Acid PO SCH (20:35)
[2021-12-23] MEDS: DULOXETINE HCL 30 MG CAP PO SCH (20:35)
[2021-12-23] MEDS: ALPRAZOLAM 0.5 MG TABLET PO PRN (20:39)
[2021-12-24] VITALS (7 sets, daily range): BP systolic 92–118; BP diastolic 40–59
[2021-12-24] MEDS: SACUBITRIL/VALSARTAN 1 EACH TABLET PO SCH (09:00)
[2021-12-24] MEDS: AMLODIPINE 5 MG TAB PO SCH (09:00)
[2021-12-24] MEDS: CARVEDILOL 6.25 MG TABLET PO SCH (09:00)
[2021-12-24] MEDS: FUROSEMIDE 40 MG TABLET PO SCH (09:00)
[2021-12-24] MEDS: ALPRAZOLAM 0.5 MG TABLET PO PRN ×2 (09:05→22:00)
[2021-12-24] MEDS: ACYCLOVIR 200 MG CAPSULE PO SCH (09:06)
[2021-12-24] MEDS: POLYETHYLENE GLYCOL 3350 17 GM POWD.PACK PO SCH (09:07)
[2021-12-24] MEDS: PANTOPRAZOLE 40 MG TAB DR PO SCH (09:10)
[2021-12-24] MEDS: ASPIRIN 81 MG EC TAB PO SCH (09:11)
[2021-12-24] MEDS: TOPIRAMATE 100 MG TAB PO SCH ×2 (09:11→21:56)
[2021-12-24] MEDS: CLOPIDOGREL 75MG TAB PO SCH (09:12)
[2021-12-24] MEDS ORDERED: MIDODRINE HCL 5 MG TABLET ONE (11:20)
[2021-12-24] MEDS: MIDODRINE HCL 5 MG TABLET PO SCH ×2 (12:31→21:56)
[2021-12-24] MEDS: Vitamin B Complex/Vit C/Folic Acid PO SCH (21:56)
[2021-12-24] MEDS: ATORVASTATIN 40 MG TABLET PO SCH (21:56)
[2021-12-24] MEDS: DULOXETINE HCL 30 MG CAP PO SCH (21:56)
[2021-12-25] VITALS (21 sets, daily range): BP systolic 102–147; BP diastolic 50–66
[2021-12-25 05:42] LABS: HEMATOCRIT 36.2 % (36-48); MEAN CORPUSCULAR HEMOGLOBIN 30.2 pg (27.0-33.0); MEAN CORPUSCULAR HGB CONC 30.7 g/dL (32.0-36.0); MEAN CORPUSCULAR VOLUME 98.4 fL (79-99); PLATELET COUNT (AUTO) 190 K/uL (130-400); RED BLOOD CELL COUNT(AUTO) 3.68 MIL/uL (4.00-5.50); RED CELL DISTRIBUTION WIDTH 15.5 % (11.0-15.5); WHITE BLOOD COUNT (AUTO) 5.5 K/uL (4.8-10.8)
[2021-12-25 06:01] LABS: ALBUMIN 2.8 g/dL (3.5-5.0); CREATININE 5.4 mg/dL (0.5-1.5); POTASSIUM 5.2 mmol/L (3.5-5.1); TOTAL PROTEIN, SERUM 7.1 g/dL (6.0-8.3)
[2021-12-25 06:04] LABS: LYMPHOCYTES % (MANUAL) 16 % (22-44); MAN.DIFF COMMENT-IMPRESSION MANUAL DIFFERENTIAL; MONOCYTES % (MANUAL) 8 % (2-9); SEGMENTED NEUTROPHILS % 76 % (40-70)
[2021-12-25 06:05] LABS: PLATELET MORPHOLOGY COMMENT ADEQUATE
[2021-12-25] MEDS: MIDODRINE HCL 5 MG TABLET PO SCH ×3 (08:52→21:28)
[2021-12-25] MEDS: PANTOPRAZOLE 40 MG TAB DR PO SCH (08:52)
[2021-12-25] MEDS: ASPIRIN 81 MG EC TAB PO SCH (08:53)
[2021-12-25] MEDS: TOPIRAMATE 100 MG TAB PO SCH ×2 (08:53→21:28)
[2021-12-25] MEDS: CLOPIDOGREL 75MG TAB PO SCH (08:53)
[2021-12-25] MEDS: ACYCLOVIR 200 MG CAPSULE PO SCH (08:54)
[2021-12-25] MEDS: ALPRAZOLAM 0.5 MG TABLET PO PRN ×2 (08:55→21:27)
[2021-12-25] MEDS: POLYETHYLENE GLYCOL 3350 17 GM POWD.PACK PO SCH (08:56)
[2021-12-25] MEDS: HEPARIN 5,000 UNIT VIAL IV SCH (17:28)
[2021-12-25] MEDS ORDERED: BACITRACIN 1 EACH PACKET TP SCH (17:30)
[2021-12-25] MEDS: Vitamin B Complex/Vit C/Folic Acid PO SCH (21:28)
[2021-12-25] MEDS: ATORVASTATIN 40 MG TABLET PO SCH (21:28)
[2021-12-25] MEDS: DULOXETINE HCL 30 MG CAP PO SCH (21:28)
[2021-12-26 03:59] VITALS: BP 118/43
[2021-12-26 06:11] LABS: HEMATOCRIT 33.9 % (36-48); MEAN CORPUSCULAR HEMOGLOBIN 30.1 pg (27.0-33.0); MEAN CORPUSCULAR HGB CONC 31.6 g/dL (32.0-36.0); MEAN CORPUSCULAR VOLUME 95.2 fL (79-99); PLATELET COUNT (AUTO) 167 K/uL (130-400); RED BLOOD CELL COUNT(AUTO) 3.56 MIL/uL (4.00-5.50); RED CELL DISTRIBUTION WIDTH 15.5 % (11.0-15.5); WHITE BLOOD COUNT (AUTO) 5.1 K/uL (4.8-10.8)
[2021-12-26 06:21] LABS: CREATININE 4.1 mg/dL (0.5-1.5); PHOSPHORUS 6.9 mg/dL (2.5-4.9); POTASSIUM 5.2 mmol/L (3.5-5.1)
[2021-12-26 07:54] LABS: BASOPHILS % (MANUAL) 2 % (0-2); EOSINOPHILS % (MANUAL) 4 % (1-6); LYMPHOCYTES % (MANUAL) 22 % (22-44); MAN.DIFF COMMENT-IMPRESSION MANUAL DIFFERENTIAL; MONOCYTES % (MANUAL) 8 % (2-9); SEGMENTED NEUTROPHILS % 64 % (40-70)
[2021-12-26 07:55] LABS: PLATELET MORPHOLOGY COMMENT ADEQUATE
[2021-12-26] MEDS ORDERED: BACITRACIN 1 EACH PACKET TP SCH ×2 (09:00)
[2021-12-26] MEDS: POLYETHYLENE GLYCOL 3350 17 GM POWD.PACK PO SCH (09:00)
[2021-12-26] MEDS: PANTOPRAZOLE 40 MG TAB DR PO SCH (10:49)
[2021-12-26] MEDS: ACYCLOVIR 200 MG CAPSULE PO SCH (10:49)
[2021-12-26] MEDS: MIDODRINE HCL 5 MG TABLET PO SCH ×2 (10:49→14:00)
[2021-12-26] MEDS: TOPIRAMATE 100 MG TAB PO SCH (10:49)
[2021-12-26] MEDS: ASPIRIN 81 MG EC TAB PO SCH (10:49)
[2021-12-26] MEDS: CLOPIDOGREL 75MG TAB PO SCH (10:50)
[2021-12-26] MEDS: ALPRAZOLAM 0.5 MG TABLET PO PRN (10:54)
[2021-12-26 11:53] VITALS: BP 140/61
== END 2021-12-26 18:45 | disposition home or self-care (01) | DRG 637 ==
LOC: EDH 14:50 → EDHIP 20:38 → 3CH 23:13
PROVIDERS: ADMIT Internal Medicine Infectious Disease; ATTEND Internal Medicine Infectious Disease
PROC: 5A1D70Z Performance of Urinary Filtration, Intermittent, Less than 6 Hours Per Day (ICD-10-PCS; principal; 2021-12-21)
PROC: 5A1D70Z Performance of Urinary Filtration, Intermittent, Less than 6 Hours Per Day (ICD-10-PCS; 2021-12-23)
PROC: 5A1D70Z Performance of Urinary Filtration, Intermittent, Less than 6 Hours Per Day (ICD-10-PCS; 2021-12-25)
DX: E11.649 Type 2 diabetes mellitus with hypoglycemia without coma (principal); G93.41 Metabolic encephalopathy; J96.91 Respiratory failure, unspecified with hypoxia; I12.0 Hypertensive chronic kidney disease with stage 5 chronic kidney disease or end stage renal disease; E87.70 Fluid overload, unspecified; N18.6 End stage renal disease; E87.5 Hyperkalemia; I73.9 Peripheral vascular disease, unspecified; M19.90 Unspecified osteoarthritis, unspecified site; B95.61 Methicillin susceptible Staphylococcus aureus infection as the cause of diseases classified elsewhere; R00.1 Bradycardia, unspecified; D64.9 Anemia, unspecified; E11.22 Type 2 diabetes mellitus with diabetic chronic kidney disease; E11.51 Type 2 diabetes mellitus with diabetic peripheral angiopathy without gangrene; E78.5 Hyperlipidemia, unspecified; F14.10 Cocaine abuse, uncomplicated; G40.909 Epilepsy, unspecified, not intractable, without status epilepticus; G89.29 Other chronic pain; I25.10 Atherosclerotic heart disease of native coronary artery without angina pectoris; J44.9 Chronic obstructive pulmonary disease, unspecified; Z79.4 Long term (current) use of insulin; Z83.3 Family history of diabetes mellitus; Z91.199 Patient's noncompliance with other medical treatment and regimen due to unspecified reason; Z95.0 Presence of cardiac pacemaker; Z95.1 Presence of aortocoronary bypass graft; Z99.2 Dependence on renal dialysis
CPT/HCPCS: 36415; 80048; 80053; 80305; 81001; 82948; 83605; 83735; 84100; 84145; 84484; 85025; 85027; 86704; 86706; 87088; 87340; 90935; 93005; G0378; J1644; J3490; J7070; J7131